=== PATIENT | male | born 1995 | race Caucasian/White ===

== ENCOUNTER 2024-01-30 14:30 | Outpatient (AMB) | payer MEDICARE, OTHER, MEDICAID, SELFPAY ==
--- NOTE | 2024-01-30 14:35 | A.OFFVIS_ITS ---
Vital Signs 01/30/24 14:41 Height 5 ft 4 in Weight 112 lb BMI 19.2 BP 112/70 Blood Pressure Location Lt brachial Position Sitting Pulse 82 Pulse Source Pulse Oximeter Pulse Oximetry (%) 98 Oxygen Delivery Method Room Air Intake Visit Reasons: ENP: Movement disorder/tics - Confirmed Intake Note: Patient presents for movement disorder/tics. Excessive burping at times and cl icking of the teeth Allergies dextroamphetamine Allergy (Verified 01/30/24 14:41) Unknown methylphenidate [From Concerta] Allergy (Verified 01/30/24 14:41) Unknown Medication List - Last Reconciled 01/30/24 by Daily Fritz MD sertraline 50 mg PO DAILY HPI Comments Details: 28y/o left handed male with h/o intellectual disability ,ADHD and transient TICS ( resolved with medications )as a child comes for evaluation of new abnormal movements. He is accompanied by his mother who helps with history.He was Daytrana patch ( methylphenidate ) for 10 years and stopped 6 years ago . 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 he started noticing some clinking of his teeth like clenching for 1 year and 2 years ago he frequently burps and can suppress it partially. He is not sure of any exaggerating or relieving factors.But mother feels anxiety increases. he also has OCD . He has h/o GERD but has been stable [facility] Medical History (Updated 01/30/24 @ 15:25 by Daily Fritz MD) Abnormal involuntary movement Tic disorder Retinopathy Prematurity, weight 500-749 grams, with less than 24 completed weeks of gestation Cognitive developmental delay Asthma Anxiety ADD (attention deficit disorder) Surgical History History of surgical procedure on eye proper using laser History of inguinal hernia repair History of myringotomy History of phacoemulsification of cataract of left eye with intraocular lens implantation Family History Mother Hyperlipidemia Hypertension Thyroid disease Father Grayson muscular dystrophy Hypertension RICK (obstructive sleep apnea) Osteoporosis Physical Exam Vital Signs: Last Vital Signs Pulse 82 05/29/24 14:41 BP 112/70 05/29/24 14:41 Pulse Ox 98 01/30/24 14:41 Oxygen Delivery Method Room Air 01/30/24 14:41 BMI result Body Mass Index 19.2 Const General: cooperative, healthy appearing, comfortable and no acute distress Nutritional Appearance: average body habitus Orientation/consciousness: patient oriented x3 Eyes Pupils: Equal, round and reactive pupils present Neuro Other: left eye - cannot abduct right eye medially rotated- dysconjugate gaze General: patient oriented x3, gait normal, tone normal, moves all extremities and no focal motor deficits Cranial nerves: Yes Equal, round and reactive pupils present, Yes Nystagmus not present, Yes Normal facial strength present, Yes Midline tongue present, Yes Symmetric palate elevation present and Yes Ability to bilaterally elevate shoulders present Gait exam (Neuro): Normal gait present Motor exam (neuro): 5/5 motor strength present throughout and Normal motor muscle tone present throughout Deep tendon reflexes (DTR's): Right triceps reflex intensity grade: 2+, Left triceps reflex intensity grade: 2+, Rt Biceps (C5, C6): 2+, Left biceps reflex intensity grade: 2+, Right brachioradialis reflex intensity grade: 2+, Left brachioradialis reflex intensity grade: 2+, Right patellar reflex intensity grade: 3+ and Left patellar reflex intensity grade: 3+ Coordination: [id number] test normal Assessment & Plan Assessment & Plan (1) Tic disorder: Comment: ? Tourettes Code(s): F95.9 - Tic disorder, unspecified Category: Medical (2) Abnormal involuntary movement: Code(s): R25.9 - Unspecified abnormal involuntary movements Category: Medical Plan SD BRain and EEG to evaluate Will start 4 week course of omeprazole 20 mg qd Clonidine 0.1 mg qhs Orders: Orders MR head/brain wo con Today F81.9 - Developmental disorder of scholastic skills, unspecified, F95.9 - Tic disorder, unspecified, R25.9 - Unspecified abnormal involuntary movements EEG electroencephalogram Today F95.9 - Tic disorder, unspecified, R25.9 - Unspecified abnormal involuntary movements Medications: New omeprazole 20 mg PO DAILY 30 caps 0RF clonidine HCl 0.1 mg PO BEDTIME 30 tabs 6RF Coding Level of Care Code New Pt Level 4 (16052) Diagnoses Tic disorder F95.9 Abnormal involuntary movement R25.9
[2024-01-30 14:41] VITALS: BP 112/70; PULSE 82; O2SAT 98; BMI 19.2
== END 2024-01-30 15:40 | disposition home or self-care (01) ==
PROVIDERS: PCP Internal Medicine; Visit Provider Psychiatry & Neurology Neurology
DX: F95.9 Tic disorder, unspecified (principal); R25.9 Unspecified abnormal involuntary movements
CPT/HCPCS: 99204

== ENCOUNTER → 2024-01-30 14:30 | Outpatient (BNVA) | payer MEDICARE, OTHER, MEDICAID, SELFPAY | PROVIDERS: PCP Internal Medicine; Visit Provider Psychiatry & Neurology Neurology | DX: F95.9 Tic disorder, unspecified (principal) | CPT/HCPCS: 99202 ==

== ENCOUNTER 2024-02-19 15:30 | Outpatient (REF) | payer MEDICARE, MEDICAID, OTHER, SELFPAY ==
--- NOTE | ~2024-02-19 | MR_ITS ---
EXAMINATION: MR BRAIN WITHOUT CONTRAST CLINICAL INFORMATION: Tic disorder COMPARISON: None available. TECHNIQUE: MRI of the brain was obtained using routine sequences without contrast. FINDINGS: No acute intracranial hemorrhage or infarct. Scattered periventricular and deep white matter T2/FLAIR hyperintensities, nonspecific however commonly seen with small vessel ischemic disease. No midline shift or hydrocephalus. No acute extra-axial fluid collections. The osseous structures are unremarkable. The pituitary gland, pineal gland and remaining midline structures are unremarkable. No orbital pathology. Mild mucosal thickening of the paranasal sinuses with mucus retention cysts in the left maxillary sinus. Mastoid air cells are clear. MR/MR head/brain wo con IMPRESSION: -No acute intracranial abnormality. -Nonspecific scattered periventricular and deep white matter T2/FLAIR hyperintensities.
== END 2024-02-19 15:31 | disposition home or self-care (01) ==
LOC: HO.MRI 15:30
PROVIDERS: PCP Internal Medicine; Visit Provider Psychiatry & Neurology Neurology
DX: F95.9 Tic disorder, unspecified (principal); F81.9 Developmental disorder of scholastic skills, unspecified
CPT/HCPCS: 70551

== ENCOUNTER 2024-03-20 12:57 | Outpatient (REF) | payer MEDICARE, OTHER, MEDICAID, SELFPAY ==
--- NOTE | 2024-03-20 13:01 | EEG_ITS ---
This is a 16-channel EEG with an EKG lead. The patient is reported awake during the tracing. Background EEG rhythm is about 10 hertz 5 to 50 microvolt posteriorly, lower amplitude fast anteriorly. Photic stimulation does not produce any significant driving. Hyperventilation is unremarkable. Cardiac lead does not reveal any significant abnormality. No sharp wave spikes or paroxysmal tendency noted. IMPRESSION: No significant abnormality noted on this EEG. MD NOHEMI Burnett/AUDREY / [phone]
== END 2024-03-20 12:58 | disposition home or self-care (01) ==
LOC: HO.NEURO 12:57
PROVIDERS: PCP Internal Medicine; Visit Provider Psychiatry & Neurology Neurology
DX: F95.9 Tic disorder, unspecified (principal)
CPT/HCPCS: 95816

== ENCOUNTER 2024-05-01 08:25 | Outpatient (AMB) | payer MEDICARE, MEDICAID, OTHER, SELFPAY ==
--- NOTE | 2024-05-01 08:27 | A.OFFVIS_ITS ---
Vital Signs 05/01/24 08:29 Height 5 ft 4 in Weight 107 lb 4 oz BMI 18.4 BP 100/62 Blood Pressure Location Rt brachial Position Sitting Respiration 16 Pulse 94 Pulse Source Pulse Oximeter Pulse Oximetry (%) 98 Oxygen Delivery Method Room Air Intake Visit Reasons: Follow Up Intake Note: Pt presents for 3 month follow up for Abnormal involuntary movement. Max is here to discuss results of MRI done on 02/19/24 and an EEG done on 03/20/24. Civil Technician Required: No Allergies dextroamphetamine Allergy (Verified 05/01/24 08:28) Unknown methylphenidate [From Concerta] Allergy (Verified 05/01/24 08:28) Unknown Medication List - Last Reconciled 05/01/24 by Daily Fritz MD clonidine HCl 0.1 mg PO BEDTIME omeprazole 40 mg PO DAILY sertraline 50 mg PO DAILY HPI Comments Details: 28y/o left handed male with h/o intellectual disability ,ADHD and transient TICS ( resolved with medications )as a child comes for follow up of new abnormal movements.The clenching and clicking of his teeth has decreased significantly. His burping has decreased with omeprazole. He is accompanied by his mother who helps with history.He was Daytrana patch ( methylphenidate ) for 10 years and stopped 6 years ago . 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 He is not sure of any exaggerating or relieving factors.But mother feels anxiety increases. he also has OCD . He has h/o GERD but has been stable [facility] Medical History Abnormal involuntary movement Tic disorder Retinopathy Prematurity, weight 500-749 grams, with less than 24 completed weeks of gestation Cognitive developmental delay Asthma Anxiety ADD (attention deficit disorder) Surgical History History of surgical procedure on eye proper using laser History of inguinal hernia repair History of myringotomy History of phacoemulsification of cataract of left eye with intraocular lens implantation Family History Mother Hyperlipidemia Hypertension Thyroid disease Father Grayson muscular dystrophy Hypertension RICK (obstructive sleep apnea) Osteoporosis Physical Exam Vital Signs: Last Vital Signs Pulse 94 05/01/24 08:29 Resp 16 05/01/24 08:29 BP 100/62 05/01/24 08:29 Pulse Ox 98 05/01/24 08:29 Oxygen Delivery Method Room Air 05/01/24 08:29 BMI result Body Mass Index 18.4 Const General: cooperative, healthy appearing, comfortable and no acute distress Nutritional Appearance: average body habitus Orientation/consciousness: patient oriented x3 Eyes Pupils: Equal, round and reactive pupils present Neuro Other: left eye - cannot abduct right eye medially rotated- dysconjugate gaze General: patient oriented x3, gait normal, tone normal, moves all extremities and no focal motor deficits Cranial nerves: Yes Equal, round and reactive pupils present, Yes Nystagmus not present, Yes Normal facial strength present, Yes Midline tongue present, Yes Symmetric palate elevation present and Yes Ability to bilaterally elevate shoulders present Gait exam (Neuro): Normal gait present Motor exam (neuro): 5/5 motor strength present throughout and Normal motor muscle tone present throughout Coordination: [id number] test normal Assessment & Plan Assessment & Plan (1) Tic disorder: Comment: ? Tourettes Code(s): F95.9 - Tic disorder, unspecified Category: Medical (2) Abnormal involuntary movement: Code(s): R25.9 - Unspecified abnormal involuntary movements Category: Medical Plan Increase omeprazole 40mg qd Clonidine 0.1 mg qhs Medications: Changed From omeprazole 20 mg PO DAILY 30 caps 0RF To omeprazole 40 mg PO DAILY 30 caps 3RF Coding Level of Care Code Est Pt Level 4 (78650) Complex EM visit Add On G2211 Diagnoses Tic disorder F95.9 Abnormal involuntary movement R25.9
[2024-05-01 08:29] VITALS: BP 100/62; PULSE 94; RESP 16; O2SAT 98; BMI 18.4
== END 2024-05-01 09:03 | disposition home or self-care (01) ==
PROVIDERS: PCP Internal Medicine; Visit Provider Psychiatry & Neurology Neurology
DX: F95.9 Tic disorder, unspecified (principal); R25.9 Unspecified abnormal involuntary movements
CPT/HCPCS: 99214; G2211

== ENCOUNTER → 2024-05-01 08:25 | Outpatient (BNVA) | payer MEDICARE, OTHER, MEDICAID, SELFPAY | PROVIDERS: PCP Internal Medicine; Visit Provider Psychiatry & Neurology Neurology | DX: F95.9 Tic disorder, unspecified (principal) | CPT/HCPCS: 99212 ==

== ENCOUNTER 2024-11-19 13:28 | Outpatient (AMB) | payer MEDICARE, MEDICAID, SELFPAY ==
--- NOTE | 2024-11-19 13:34 | A.OFFVIS_ITS ---
Vital Signs 11/19/24 13:35 Height 5 ft 4 in Weight 111 lb BMI 19.1 BP 98/70 Blood Pressure Location Rt brachial Position Sitting Pulse 61 Pulse Source Pulse Oximeter Pulse Oximetry (%) 98 Oxygen Delivery Method Room Air Intake Visit Reasons: Follow up Movement disorder/tics Intake Note: referred by Dr. Sparks at [facility] for tics Allergies dextroamphetamine Allergy (Verified 11/19/24 13:35) Unknown methylphenidate [From Concerta] Allergy (Verified 11/19/24 13:35) Unknown HPI Comments Details: 28y/o left handed male with h/o intellectual disability ,ADHD and transient TICS ( resolved with medications )as a child comes for follow up of new abnormal movements.The clenching and clicking of his teeth has decreased significantly. His burping has decreased with omeprazole. He is accompanied by his mother who helps with history.He was Daytrana patch ( methylphenidate ) for 10 years and stopped 6 years ago . 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 He is not sure of any exaggerating or relieving factors.But mother feels anxiety increases. he also has OCD . He has h/o GERD but has been stable [facility] Medical History Abnormal involuntary movement Tic disorder Retinopathy Prematurity, weight 500-749 grams, with less than 24 completed weeks of gestation Cognitive developmental delay Asthma Anxiety ADD (attention deficit disorder) Surgical History History of surgical procedure on eye proper using laser History of inguinal hernia repair History of myringotomy History of phacoemulsification of cataract of left eye with intraocular lens implantation Family History Mother Hyperlipidemia Hypertension Thyroid disease Father Grayson muscular dystrophy Hypertension RICK (obstructive sleep apnea) Osteoporosis Social History Alcohol intake: never Substance Use Type: Marijuana Physical Exam Vital Signs: Last Vital Signs Pulse 61 11/19/24 13:35 BP 98/70 11/19/24 13:35 Pulse Ox 98 11/19/24 13:35 Oxygen Delivery Method Room Air 11/19/24 13:35 BMI result Body Mass Index 19.1 Const General: cooperative, healthy appearing, comfortable and no acute distress Nutritional Appearance: average body habitus Orientation/consciousness: patient oriented x3 Eyes Pupils: Equal, round and reactive pupils present Neuro Other: left eye - cannot abduct right eye medially rotated- dysconjugate gaze General: patient oriented x3, gait normal, tone normal, moves all extremities and no focal motor deficits Cranial nerves: Yes Equal, round and reactive pupils present, Yes Nystagmus not present, Yes Normal facial strength present, Yes Midline tongue present, Yes Symmetric palate elevation present and Yes Ability to bilaterally elevate shoulders present Gait exam (Neuro): Normal gait present Motor exam (neuro): 5/5 motor strength present throughout and Normal motor muscle tone present throughout Coordination: [id number] test normal Assessment & Plan Assessment & Plan (1) Tic disorder: Comment: ? Tourettes Code(s): F95.9 - Tic disorder, unspecified Category: Medical (2) Abnormal involuntary movement: Code(s): R25.9 - Unspecified abnormal involuntary movements Category: Medical Plan Increase omeprazole 40mg qd Clonidine 0.1 mg qhs Coding Level of Care Code Est Pt Level 4 (55726) Diagnoses Tic disorder F95.9 Abnormal involuntary movement R25.9
[2024-11-19 13:35] VITALS: BP 98/70; PULSE 61; O2SAT 98; BMI 19.1
== END 2024-11-19 13:48 | disposition home or self-care (01) ==
LOC: HO.HSMS 13:29
PROVIDERS: PCP Internal Medicine; Visit Provider Psychiatry & Neurology Neurology
DX: F95.9 Tic disorder, unspecified (principal); R25.9 Unspecified abnormal involuntary movements
CPT/HCPCS: 99214

== ENCOUNTER → 2024-11-19 13:28 | Outpatient (BNVA) | payer MEDICARE, MEDICAID, SELFPAY | PROVIDERS: PCP Internal Medicine; Visit Provider Psychiatry & Neurology Neurology | DX: F95.9 Tic disorder, unspecified (principal) | CPT/HCPCS: 99212 ==